=== PATIENT | female | born 2000 | race Hispanic/Latino ===

== ENCOUNTER 2021-04-02 22:57 | Observation (INO) | payer OTHER ==
[2021-04-02 23:32] VITALS: BMI 26.7
[2021-04-03 00:12] LABS: Fetal Membranes Rupture No Membranes Rupture (No Rupture)
[2021-04-03] MEDS ORDERED: hydrALAZINE 20 MG/ML VIAL SLOW IVP PRN (00:38)
[2021-04-03] MEDS ORDERED: Acetaminophen 500 MG TAB PO PRN (00:38)
[2021-04-03] MEDS ORDERED: Zolpidem Tartrate 5 MG TAB PO PRN (00:38)
[2021-04-03] MEDS ORDERED: Ondansetron PF 4 MG/2 ML Vial IVP PRN (00:38)
[2021-04-03] MEDS ORDERED: Promethazine HCl 25 MG/ML VIAL IM PRN (00:38)
[2021-04-03] MEDS ORDERED: Butorphanol Tartrate 1 MG/ML VIAL SLOW IVP PRN (00:38)
[2021-04-03] MEDS ORDERED: Lactated Ringer's 1,000 ML IV SCH ×2 (00:45)
[2021-04-03 01:39] LABS: Mean Corpuscular HGB CONC 28.8 g/dL (32.0-36.0); Mean Corpuscular Hemoglobin 21.5 pg (27.0-33.0); Mean Corpuscular Volume 74.8 fl (81.6-98.3); Mean Platelet Volume 11.8 fl (7.4-10.4); Platelet Count 245 10x3/uL (150-450); RBC Distribution Width 18.2 % (11.5-14.5); Red Blood Cell (RBC) Count 3.25 10x6/uL (3.90-5.03); White Blood Cell (WBC) Count 8.4 10x3/uL (3.5-10.5)
[2021-04-03 02:11] LABS: Hep B Surf Ag Non-Reactive S/CO (NonReactive); Syphilis Antibody Nonreactive (Nonreactive); Syphilis Antibody Index 0.02 S/CO (<1.00 Non-Reactive)
[2021-04-03 02:41] LABS: HBSAg Index 0.15 S/CO (0-0.99)
[2021-04-03] MEDS ORDERED: hydrOXYzine 25 MG TAB PO SCH (06:00)
[2021-04-03 07:37] LABS: SARS-CoV-2 NAA Rapid Test Not Detected (NotDetected)
== END 2021-04-03 15:45 | disposition home or self-care (01) ==
LOC: CSHLD/OP 22:57 → CSHLD 04-03 03:38
PROVIDERS: ADMIT Obstetrics & Gynecology; ATTEND Obstetrics & Gynecology
DX: O47.1 False labor at or after 37 completed weeks of gestation (principal); O99.891 Other specified diseases and conditions complicating pregnancy; N89.8 Other specified noninflammatory disorders of vagina; Z3A.38 38 weeks gestation of pregnancy; Z88.1 Allergy status to other antibiotic agents; Z20.822 Contact with and (suspected) exposure to COVID-19
CPT/HCPCS: 36415; 84112; 85027; 86780; 86850; 86900; 86901; 87340; 96360; 96361; 96374; 99283; G0378; J0595; J7120; U0002

== ENCOUNTER 2023-03-08 21:02 | Emergency (ER) | payer OTHER ==
[2023-03-08 23:20] LABS: Bilirubin Neg (Negative); Blood, Urine Negative (Negative); Clarity Cloudy (Clear); Glucose, Urine (Dipstick) Normal (Negative); Ketone, Urine Negative (Negative); Leukocyte 100 (Negative); Nitrite Positive (Negative); Protein, Urine (Dipstick) Negative (Neg-Trace); Urobilinogen Normal mg/dL (Less than 2)
[2023-03-09 00:39] LABS: RBC/HPF None Seen HPF (0-3)
[2023-03-09 00:40] LABS: Bacteria/HPF 1+ HPF (None Seen); CAUTI Indications for Culture Pregnancy; Squamous Epithelial 0-3 HPF (0-3)
[2023-03-09 00:43] LABS: Urine Culture Reflex Yes Yes
== END 2023-03-09 00:12 | disposition home or self-care (01) ==
LOC: CSHERS 21:02
DX: O23.42 Unspecified infection of urinary tract in pregnancy, second trimester (principal); O99.332 Smoking (tobacco) complicating pregnancy, second trimester; F17.210 Nicotine dependence, cigarettes, uncomplicated; Z3A.19 19 weeks gestation of pregnancy
CPT/HCPCS: 81001; 87077; 87086; 87186; 99284

== ENCOUNTER 2023-04-03 13:42 | Day surgery (SDC) | payer OTHER ==
[2023-04-03 14:22] VITALS: BMI 23.6
[2023-04-03] MEDS ORDERED: hydrALAZINE 20 MG/ML VIAL SLOW IVP PRN (15:00)
[2023-04-03 15:26] LABS: Bilirubin Neg (Negative); Blood, Urine Negative (Negative); Glucose, Urine (Dipstick) Normal (Negative); Ketone, Urine Negative (Negative); Leukocyte Negative (Negative); Nitrite Negative (Negative); Protein, Urine (Dipstick) Negative (Neg-Trace); Specific Gravity, Urine 1.015 (1.005-1.030); Urobilinogen Normal mg/dL (Less than 2)
[2023-04-03 15:33] LABS: Clarity Slightly Cloudy (Clear)
[2023-04-03 15:35] LABS: Bacteria/HPF Rare-Few HPF (None Seen); CAUTI Indications for Culture Pregnancy; RBC/HPF 0-3 HPF (0-3); Squamous Epithelial 0-3 HPF (0-3); Transitional Epithelial 0-3 HPF (None Seen); WBC/HPF 0-3 HPF (0-3)
[2023-04-03 15:37] LABS: Urine Culture Reflex Yes Yes
[2023-04-03] MEDS ORDERED: Cyclobenzaprine 10 MG TAB PO SCH (16:00)
== END 2023-04-03 16:50 | disposition home or self-care (01) ==
LOC: CSHLD/OP 13:42
PROVIDERS: ATTEND Family Medicine
DX: O26.892 Other specified pregnancy related conditions, second trimester (principal); R10.2 Pelvic and perineal pain; Z88.1 Allergy status to other antibiotic agents
CPT/HCPCS: 81001; 87086

== ENCOUNTER 2023-05-16 13:45 | Outpatient (CLI) | payer OTHER | END 2023-05-16 13:46 | disposition home or self-care (01) | LOC: CSHULT 13:45 | PROVIDERS: ATTEND Family Medicine | DX: O09.892 Supervision of other high risk pregnancies, second trimester (principal); Z3A.28 28 weeks gestation of pregnancy | CPT/HCPCS: 76805 ==

== ENCOUNTER 2023-07-27 05:22 | Inpatient (IN) | payer OTHER ==
[2023-07-26 15:39] LABS: Hematocrit 23.7 % (34.9-44.5); Hemoglobin 6.7 g/dL (12.0-15.5); Platelet Count 269 10x3/uL (150-450)
[2023-07-26 16:14] LABS: HBSAg Index 0.17 S/CO (0-0.99); Hep B Surf Ag Non-Reactive S/CO (NonReactive); Syphilis Antibody Nonreactive (Nonreactive); Syphilis Antibody Index 0.04 S/CO (<1.00 Non-Reactive)
[2023-07-27] MEDS ORDERED: Promethazine HCl 25 MG/ML VIAL IM PRN ×3 (05:30→10:57)
[2023-07-27] MEDS ORDERED: hydrALAZINE 20 MG/ML VIAL SLOW IVP PRN ×2 (05:30→10:57)
[2023-07-27] MEDS ORDERED: Oxytocin 30 units/NS 500 ML 500 ML IV SCH (05:30)
[2023-07-27] MEDS ORDERED: Tranexamic Acid 1,000 MG/10 ML VIAL IVP PRN (05:30)
[2023-07-27] MEDS ORDERED: Methylergonovine 0.2 MG/ML VIAL IM PRN (05:30)
[2023-07-27] MEDS ORDERED: Bicitra 30 ML UDCUP PO PRN (05:30)
[2023-07-27] MEDS ORDERED: Carboprost 250 MCG/ML AMP IM PRN (05:30)
[2023-07-27] MEDS ORDERED: Famotidine/PF 20 mg/2ml Vial SLOW IVP PRN (05:30)
[2023-07-27] MEDS ORDERED: Lactated Ringer's 1,000 ML IV SCH (05:30)
[2023-07-27] MEDS ORDERED: Diphenoxylate HCl/Atropine Tablet PO PRN (05:30)
[2023-07-27] MEDS ORDERED: Misoprostol 200 MCG TAB PR PRN (05:30)
[2023-07-27] MEDS ORDERED: CEFAZOLIN 2 GM in Sodium Chloride 0.9% 100 ML IVPB SCH (05:30)
[2023-07-27] MEDS ORDERED: Ondansetron PF 4 MG/2 ML Vial IVP PRN ×4 (05:30→10:57)
[2023-07-27 06:09] VITALS: BMI 28.0
[2023-07-27] MEDS ORDERED: Tranexamic Acid 1,000 MG/10 ML VIAL ONE (07:20)
[2023-07-27] MEDS ORDERED: Methylergonovine 0.2 MG/ML VIAL ONE (07:20)
[2023-07-27] MEDS ORDERED: Misoprostol 200 MCG TAB ONE (07:20)
[2023-07-27] MEDS ORDERED: Carboprost 250 MCG/ML AMP ONE (07:20)
[2023-07-27] MEDS ORDERED: Dexmedetomidine 200 MCG/2 ML VIAL ONE (07:30)
[2023-07-27] MEDS ORDERED: Morphine PF 10 MG/10 ML VIAL ONE (07:30)
[2023-07-27] MEDS ORDERED: Ondansetron PF 4 MG/2 ML Vial ONE (07:33)
[2023-07-27] MEDS ORDERED: Oxytocin 10 UNITS/ML VIAL ONE (07:46)
[2023-07-27] MEDS ORDERED: Dexamethasone 4 mg/ml Vial ONE (07:57)
[2023-07-27] MEDS ORDERED: diphenhydrAMINE 50 MG/ML VIAL IVP PRN (08:37)
[2023-07-27] MEDS ORDERED: Promethazine HCl 25 MG SUPP PR PRN (08:37)
[2023-07-27] MEDS ORDERED: fentaNYL 50 mcg/mL 1 mL Vial SLOW IVP PRN (08:37)
[2023-07-27] MEDS ORDERED: Naloxone HCl 0.4 mg/ml Vial IV PRN (08:37)
[2023-07-27] MEDS ORDERED: Naloxone HCl 0.4 mg/ml Vial IVP PRN ×2 (08:37)
[2023-07-27] MEDS ORDERED: Meperidine HCl/PF 25 MG (1 mL) VIAL SLOW IVP PRN (08:37)
[2023-07-27] MEDS ORDERED: Moisturizing Cream (Eucerin) 113 GM JAR TOP PRN (08:37)
[2023-07-27] MEDS ORDERED: Ketorolac Tromethamine 30 MG (1 mL) VIAL IVP PRN (08:37)
[2023-07-27] MEDS ORDERED: Ketorolac Tromethamine 30 MG (1 mL) VIAL IVP SCH (08:45)
[2023-07-27] MEDS ORDERED: Communication Order-Pharmacy FS SCH (08:45)
[2023-07-27] MEDS ORDERED: diphenhydrAMINE 25 MG CAP PO PRN (10:57)
[2023-07-27] MEDS ORDERED: Ferrous Sulfate 325 MG TAB PO SCH (10:57)
[2023-07-27] MEDS ORDERED: Meperidine HCl/PF 25 MG (1 mL) VIAL IM PRN (10:57)
[2023-07-27] MEDS ORDERED: Bisacodyl 10 MG SUPP PR PRN (10:57)
[2023-07-27] MEDS ORDERED: Simethicone Chewable 80 MG TAB PO PRN (10:57)
[2023-07-27] MEDS ORDERED: Lanolin Ointment 7 GM TUBE TOP PRN (10:57)
[2023-07-27] MEDS ORDERED: Docusate 100 MG CAP PO SCH (10:57)
[2023-07-27] MEDS ORDERED: Boostrix 0.5 ML (Tdap) VIAL (>/=7 yrs of age) IM ONE (10:57)
[2023-07-27] MEDS ORDERED: Prenatal Vitamin 1 TAB PO SCH (11:15)
[2023-07-27] MEDS: Ketorolac Tromethamine 30 MG (1 mL) VIAL IVP SCH ×2 (14:21→21:20)
[2023-07-27] MEDS ORDERED: HYDROcodone/Acetaminophen 5/325 mg Tablet PO PRN (20:45)
[2023-07-27] MEDS: Docusate 100 MG CAP PO SCH (21:20)
[2023-07-27] MEDS: Ferrous Sulfate 325 MG TAB PO SCH (21:20)
[2023-07-28] MEDS: Ketorolac Tromethamine 30 MG (1 mL) VIAL IVP SCH (03:16)
[2023-07-28 03:22] LABS: Hematocrit 23.2 % (34.9-44.5); Mean Corpuscular HGB CONC 30.2 g/dL (32.0-36.0); Mean Corpuscular Hemoglobin 21.7 pg (27.0-33.0); Mean Platelet Volume 11.1 fl (7.4-10.4); Platelet Count 211 10x3/uL (150-450); RBC Distribution Width 20.6 % (11.5-14.5); Red Blood Cell (RBC) Count 3.22 10x6/uL (3.90-5.03); White Blood Cell (WBC) Count 10.3 10x3/uL (3.5-10.5)
[2023-07-28] MEDS: Docusate 100 MG CAP PO SCH ×2 (08:15→21:16)
[2023-07-28] MEDS: Ferrous Sulfate 325 MG TAB PO SCH ×2 (08:15→21:16)
[2023-07-28] MEDS: Prenatal Vitamin 1 TAB PO SCH (08:15)
[2023-07-28] MEDS: HYDROcodone/Acetaminophen 5/325 mg Tablet PO PRN ×2 (09:04→17:00)
[2023-07-28] MEDS: Ibuprofen 800 MG TAB PO SCH ×2 (13:45→21:16)
[2023-07-29] MEDS: HYDROcodone/Acetaminophen 5/325 mg Tablet PO PRN ×3 (03:27→19:20)
[2023-07-29] MEDS: Ibuprofen 800 MG TAB PO SCH ×3 (05:31→21:04)
[2023-07-29] MEDS: Ferrous Sulfate 325 MG TAB PO SCH ×2 (09:09→21:04)
[2023-07-29] MEDS: Docusate 100 MG CAP PO SCH ×2 (09:09→21:04)
[2023-07-29] MEDS: Prenatal Vitamin 1 TAB PO SCH (09:09)
[2023-07-30] MEDS: Ibuprofen 800 MG TAB PO SCH (05:20)
[2023-07-30] MEDS: HYDROcodone/Acetaminophen 5/325 mg Tablet PO PRN ×2 (05:20→11:28)
[2023-07-30] MEDS: Prenatal Vitamin 1 TAB PO SCH (09:37)
[2023-07-30] MEDS: Ferrous Sulfate 325 MG TAB PO SCH (09:37)
[2023-07-30] MEDS: Docusate 100 MG CAP PO SCH (09:37)
[2023-07-30 10:31] VITALS: BP 105/60; TEMP 98.2
== END 2023-07-30 12:30 | disposition home or self-care (01) | DRG 788 ==
LOC: CSHLD 05:22 → CSHPP 11:14
PROVIDERS: ADMIT Family Medicine; ATTEND Family Medicine
PROC: 10D00Z1 Extraction of Products of Conception, Low, Open Approach (ICD-10-PCS; principal; 2023-07-27)
PROC: 30233N1 Transfusion of Nonautologous Red Blood Cells into Peripheral Vein, Percutaneous Approach (ICD-10-PCS; 2023-07-27)
DX: O34.211 Maternal care for low transverse scar from previous cesarean delivery (principal); Z37.0 Single live birth; Z3A.39 39 weeks gestation of pregnancy; D64.9 Anemia, unspecified; Q51.818 Other congenital malformations of uterus; O99.02 Anemia complicating childbirth
CPT/HCPCS: 36415; 36430; 85014; 85018; 85027; 85049; 86780; 86850; 86900; 86901; 87340; J1100; J1885; J2274; J2405; J2550; J2590; P9016